=== PATIENT | male | born 1995 | race Caucasian/White ===

== ENCOUNTER 2017-04-17 19:06 | Emergency (ER) | payer MEDICAID ==
[~2017-04-17] VITALS: Ht 157.5 cm; Wt 69.1 kg
[2017-04-17 19:11] VITALS: BP 125/70
== END 2017-04-17 20:59 | disposition home or self-care (01) ==
LOC: ED 20:53
DX: M79.672 Pain in left foot (principal); Z72.9 Problem related to lifestyle, unspecified; M79.671 Pain in right foot; F11.10 Opioid abuse, uncomplicated; F15.10 Other stimulant abuse, uncomplicated
CPT/HCPCS: 99283

== ENCOUNTER 2017-06-02 18:20 | Emergency (ER) | payer MEDICAID ==
[~2017-06-02] VITALS: Ht 177.8 cm; Wt 66.3 kg
[2017-06-02 18:58] LABS: BLOOD UREA NITROGEN 9 mg/dL (7-18)
[2017-06-02 20:01] VITALS: BP 102/52
== END 2017-06-02 20:04 | disposition home or self-care (01) ==
LOC: ED 19:50
DX: J20.8 Acute bronchitis due to other specified organisms (principal); S00.31XA Abrasion of nose, initial encounter; F15.10 Other stimulant abuse, uncomplicated; F11.10 Opioid abuse, uncomplicated; X58.XXXA Exposure to other specified factors, initial encounter; Y93.89 Activity, other specified; Y92.89 Other specified places as the place of occurrence of the external cause; Y99.8 Other external cause status
CPT/HCPCS: 36415; 71020; 80048; 82040; 85025; 93005; 99285

== ENCOUNTER 2017-06-14 07:00 | Emergency (ER) | payer MEDICAID ==
[~2017-06-14] VITALS: Ht 172.7 cm; Wt 59.4 kg
[2017-06-14 07:13] VITALS: BP 114/69
[2017-06-14] MEDS ORDERED: BACITRACIN ZINC OINT 500U/GM, 0.9 GM ONE (07:27)
== END 2017-06-14 08:07 | disposition home or self-care (01) ==
LOC: ED 08:00
DX: L03.113 Cellulitis of right upper limb (principal); L03.115 Cellulitis of right lower limb; L03.114 Cellulitis of left upper limb; L03.116 Cellulitis of left lower limb; B95.62 Methicillin resistant Staphylococcus aureus infection as the cause of diseases classified elsewhere; F17.210 Nicotine dependence, cigarettes, uncomplicated
CPT/HCPCS: 99283

== ENCOUNTER 2017-08-02 18:09 | Emergency (ER) | payer MEDICAID ==
[~2017-08-02] VITALS: Ht 172.7 cm; Wt 67.7 kg
[2017-08-02 18:11] VITALS: BP 117/74
[2017-08-02] MEDS ORDERED: ACETAMINOPHEN 500 MG TABLET ONE (18:39)
[2017-08-02] MEDS ORDERED: ACETAMINOPHEN 325 MG TABLET PO ONE (19:00)
== END 2017-08-02 18:59 | disposition home or self-care (01) ==
LOC: ED 18:53
DX: J34.89 Other specified disorders of nose and nasal sinuses (principal); T69.8XXA Other specified effects of reduced temperature, initial encounter; G44.219 Episodic tension-type headache, not intractable; F15.10 Other stimulant abuse, uncomplicated; Z86.14 Personal history of Methicillin resistant Staphylococcus aureus infection
CPT/HCPCS: 99282

== ENCOUNTER 2017-11-11 02:22 | Emergency (ER) | payer MEDICAID ==
[~2017-11-11] VITALS: Ht 175.3 cm; Wt 70.1 kg
[2017-11-11 02:24] VITALS: BP 122/76
== END 2017-11-11 03:41 | disposition home or self-care (01) ==
LOC: ED 03:27
DX: R05 Cough (principal); F15.10 Other stimulant abuse, uncomplicated
CPT/HCPCS: 93005; 99283